=== PATIENT | female | born 1995 | race Caucasian/White ===

== ENCOUNTER 2023-01-25 10:37 | Outpatient (CLI) | payer BC, SELFPAY ==
--- NOTE | ~2023-01-25 | US_ITS ---
US renal BI 01/25/2023 11:07 Procedure: Realtime transabdominal ultrasound of the kidneys and bladder. Indication: Chronic kidney disease. Comparison: Ultrasound dated 09/23/2008 Findings: There is right renal atrophy. No solid or cystic masses, hydronephrosis or stones. The righ t kidney measures 7.1 cm and left kidney measures 11 point cm. Bladder within normal limits. Impression: 1: Right renal atrophy. Reviewed, dictated and finalized at location B. Impression: 1: Right renal atrophy.
== END 2023-01-25 10:38 | disposition home or self-care (01) ==
PROVIDERS: PCP Physician Assistant; Visit Provider Internal Medicine Nephrology
DX: I12.9 Hypertensive chronic kidney disease with stage 1 through stage 4 chronic kidney disease, or unspecified chronic kidney disease (principal); N18.32 Chronic kidney disease, stage 3b; N26.1 Atrophy of kidney (terminal)
CPT/HCPCS: 76775